=== PATIENT | female | born 1960 | race Hispanic/Latino ===

== ENCOUNTER 2025-03-18 03:53 | Emergency (ER) | payer BC ==
[~2025-03-18] VITALS: Ht 162.6 cm; Wt 90.7 kg
--- NOTE | 2025-03-18 04:04 | NUR ---
PT CARE ASSUMED AT THIS TIME
--- NOTE | 2025-03-18 04:20 | NUR ---
PT ATTEMPT TO USE BATHROOM TO COLLECT URINE AT THIS TIME. PT WAS UNSUCCESSFUL.
--- NOTE | 2025-03-18 04:23 | ERN ---
ED Note History of Present Illness Stated Complaint: FEVER, N/V/D Chief Complaint: Nausea,Vomiting,Diarrhea Time Seen by MD: 03:54 Dictation: This is a 64-year-old female who presented to the emergency room with complaints of fever nausea vomitings diarrhea going on for about 24 hours. She stated that her temp was 101.3 at home she had 2 episodes of emesis and 2 episodes of diarrhea with profound generalized body weakness and came into the ER for evaluation No hematemesis or melena. Temperature a 100.6 pulse 103 respirations 20 blood pressure 102/55 with a pulse oximetry of 98% on room air Chronic medical problems include diabetes mellitus, hypertension, hypercholesterolemia Allergies: Coded Allergies: No Known Allergies (Unverified Allergy, Unknown, 03/18/25) Past Medical History Past Medical History: Diabetes-Type II, High Cholesterol, Hypertension Surgical History: None Family History: Negative Social History: Negative History: Not Applicable RN Note Reviewed/Agreed w/PFSH: Yes Review of System Dictation Constitutional: Positive for fever,chills, and weight loss Eyes: Negative for injury, pain,redness, and discharge ENT: Negative for injury,pain or swelling Cardiovascular: Negative for chest pain, palpitations, and edema Respiratory: Negative for shortness of breath, cough, and wheezing, Abdomen/GI: Positive for abdominal pain mostly in the suprapubic area and left lower quadrant, nausea, vomiting, diarrhea, Back: Negative for injury and pain : Negative for injury, bleeding and discharge MS/Extremity: Negative for injury and deformity Skin: Negative for rash, and discoloration Neuro: Negative for headache, weakness, numbness, tingling, and seizure Psych: Negative for suicide ideation, homicidal ideation, and hallucinations Initial Vital Sign VS Vital Signs Date Time Temp Pulse Resp B/P (MAP) Pulse Ox O2 Delivery O2 Flow Rate FiO2 03/18/25 03:54 100.6 103 20 102/55 96 Room Air 03/18/25 04:12 0 21 Physical Exam Dictation General: awake, alert, NAD Head/Face: Normocephalic, atraumatic Eyes: PERRL, EOMI, vision at baseline ENT: oral cavity clear, TMs clear, no signs of infection Neck: Trachea midline, supple, no nuchal rigidity Cardiovascular: RRR, normal S1/S2, No MRGs, no JVD Respiratory: CTAB, no respiratory distress, No rales or wheezes Abdomen: Soft, mild tenderness in the suprapubic area, non-distended, normal bowel sounds, no guarding or rebound. Skin: Warm, dry, normal turgor, no rash MS/Extremity: Pulses equal, no cyanosis, neurovascular intact, FROM Neuro: COAx4, GCS 15, strength 5/5, CN 2-12 intact, normal cerebellar exam, normal gait, Psych: Normal behavior, mood, and affect normal Extremities-trace edema without any palpable cords, Homans sign is negative Results (Laboratory/Radiology) Laboratory/Radiology Laboratory Tests Test 03/18/25 04:45 03/18/25 04:54 White Blood Count 14.3 K/uL (4.8-10.8) H Red Blood Count 4.70 MIL/uL (4.00-5.50) Hemoglobin 13.0 g/dL (12.0-16.0) Hematocrit 39.1 % (36-48) Mean Corpuscular Volume 83.2 fL (79-99) Mean Corpuscular Hemoglobin 27.7 pg (27.0-33.0) Mean Corpuscular Hemoglobin Concent 33.2 g/dL (32.0-36.0) Red Cell Distribution Width 14.4 % (11.0-15.5) Platelet Count 216 K/uL (130-400) Mean Platelet Volume 11.3 fL (7.5-10.5) H Immature Granulocyte % (Auto) 0.5 % (0-1) Neutrophils (%) (Auto) 93.9 % (40.0-77.0) H Lymphocytes (%) (Auto) 4.1 % (21.0-51.0) L Monocytes (%) (Auto) 0.8 % (3.0-13.0) L Eosinophils (%) (Auto) 0.5 % (0.0-8.0) Basophils (%) (Auto) 0.2 % (0.0-5.0) Neutrophils # (Auto) 13.4 K/uL (1.8-7.7) H Lymphocytes # (Auto) 0.6 K/uL (1.0-4.8) L Monocytes # (Auto) 0.1 K/uL (0.1-1.0) Eosinophils # (Auto) 0.07 K/uL (0.00-0.70) Basophils # (Auto) 0.03 K/uL (0.00-0.20) Absolute Immature Granulocyte (auto 0.07 K/uL (0-1) Nucleated Red Blood Cells 0.0 % (0.0-0.19) White Cell Morphology Comment See comments Sodium Level 140 mmol/L (136-145) Potassium Level 4.1 mmol/L (3.5-5.1) Chloride Level 100 mmol/L (101-111) L Carbon Dioxide Level 28 mmol/L (21-32) Blood Urea Nitrogen 10 mg/dL (7-18) Creatinine 1.1 mg/dL (0.5-1.0) H Glomerular Filtration Rate Calc 56 mL/min (>90) Random Glucose 186 mg/dL (70-105) H Total Calcium 8.9 mg/dL (8.5-10.1) Lipase 18 U/L (16-77) Influenza Type A Antigen Negative For Type A Influenza Type B Antigen Negative For Type B SARS-CoV-2 Antigen (Rapid) PRESUMPTIVE NEGATIVE Group A Streptococcus Rapid negative (NEGATIVE) ED Course ED Course Orders Procedure Category Date Status Time Cbc With Differential LAB 03/18/25 Complete 04:18 Urinalysis Profile LAB 03/18/25 Logged 04:18 Morphine 2mg Syg PHA 03/18/25 Complete (Morphine 2mg Syg) 04:30 Ondansetron 4mg Inj PHA 03/18/25 Complete (Zofran 4mg Inj) 04:30 Lipase LAB 03/18/25 Complete 04:18 Basic Metabolic Panel LAB 03/18/25 Complete 04:18 Influenza Type A & B, LAB 03/18/25 Complete Rapid 04:23 Covid19 (Sars Antigen LAB 03/18/25 Complete Rapid) 04:23 Rapid (Group A Strep) LAB 03/18/25 Complete 04:23 Acetaminophen 500mg PHA 03/18/25 Complete Tab (Tylenol 500mg T 05:30 0.9%Nacl 1000ml (Ns PHA 03/18/25 Complete 1000ml) 06:00 Ct Abdomen/Pelvis W/O CT 03/18/25 Resulted Contrast 06:49 Blood Cult MARIAN 03/18/25 Logged 08:13 Lactic Acid LAB 03/18/25 Logged 08:13 Zosyn 3.375gm+Ns 50ml PHA 03/18/25 In Process (Zosyn 3.375gm+Ns 08:30 0.9%Nacl 1000ml (Ns PHA 03/18/25 In Process 1000ml) 08:30 Current Medications Medications (Trade) Dose Ordered Sig/Vania Route PRN Reason Start Time Stop Time Status Last Admin Dose Admin Acetaminophen (TYLenol 500MG TAB) 1,000 mg ONCE ONCE PO 03/18/25 05:30 03/18/25 05:31 DC 03/18/25 05:06 Morphine Sulfate (morPHINE 2MG SYG) 2 mg ONCE ONCE IVP 03/18/25 04:30 03/18/25 04:31 DC 03/18/25 04:58 Ondansetron HCl (zoFRAN 4MG INJ) 4 mg ONCE ONCE IVP 03/18/25 04:30 03/18/25 04:31 DC 03/18/25 04:59 Piperacillin Sod/ Tazobactam Sod (Zosyn 3.375gm+NS 50ml) 3.375 gm ONCE ONCE IV 03/18/25 08:30 03/18/25 08:31 Sodium Chloride 1,000 ml @ 0 mls/hr ONCE ONCE IV 03/18/25 06:00 03/18/25 06:01 DC 03/18/25 05:46 Sodium Chloride 1,000 ml @ 0 mls/hr ONCE ONCE IV 03/18/25 08:30 03/18/25 08:31 Vital Signs Date Time Temp Pulse Resp B/P (MAP) Pulse Ox O2 Delivery O2 Flow Rate FiO2 03/18/25 06:49 97.5 83 16 107/56 98 Room Air* 0 21 03/18/25 05:35 99.7 85 18 113/52 97 Room Air* 0 21 03/18/25 05:06 101.1 03/18/25 04:12 102.0 97 19 112/52 98 Room Air* 0 21 03/18/25 03:54 100.6 103 20 102/55 96 Room Air We will perform diagnostic labs, advanced imaging and administer medications according to the patient's complaint. Once the results are available, will review and personally interpreted the labs to rule out any acute life- threatening emergency the trach require immediate intervention and treatment. I will then re-evaluate the patient after treatment and diagnostic exams have return to determine whether the patient requires any further testing, can safely be discharged home or need further admission to hospital for additional treatment and evaluation. Medical Decision Making MDM I took over care at [address] scan read and disposition. CC: n/v/d, lower abd pain Historian: patient Comorbidities: DM, HTN, DLD Limitations by social determinates of health: none Ddx: Sepsis, GI pathology, gastroenteritis, diverticulitis, dehydration, electrolyte abnormality, other Vital signs: Initially febrile 100.6, heart rate 103. Other vital signs stable. Labs (independently ordered and interpreted by me): Leukocytosis 14.3 K, 94% neutrophils. No bands. Chemistry shows stable electrolytes, creatinine 1.1. Glucose stable. Lipase stable. Flu COVID negative. CT abdomen and pelvis shows sigmoid diverticulosis without perforation or abscess, inflammatory fat stranding consistent with diverticulitis. Treatment in ED: 2 mg IV morphine, IV Zofran, 1 g of Tylenol, 1 L normal saline. Patient appears to have diverticulitis, does have a fever, meets SIRS criteria. Blood cultures and lactic acid ordered. IV antibiotics started. We will admit. Patient received 2 L normal saline, did not give the full fluid bolus 30 cc/kg to prevent fluid overload. Blood cultures and lactic acid drawn before the IV antibiotics. On sepsis focused re-evaluation after the fluid bolus the patient has stable perfusion. Cap refill less than 2 seconds. Stable vital signs. Consultation: Hospitalist for admission. DX & DISP Disposition: Inpatient Departure Impression: Primary Impression: Sepsis Additional Impressions: Diverticulitis, Dehydration Critical Time: 30 minutes (Critical Care Procedure NoteAuthorized and Performed by: meTotal critical care time: Approximately 36 minutesDue to a high probabilit y of clinically significant, life threatening deterioration, the patient required my highest level of preparedness to intervene emergently and I personally spent this critical care time directly and personally managing the patient. This critical care time included obtaining a history; examining the patient; pulse oximetry; ordering and review of studies; arranging urgent treatment with development of a management plan; evaluation of patient's response to treatment; frequent reassessment; and, discussions with other providers.This critical care time was performed to assess and manage the high probability of imminent, life-threatening deterioration that could result in multi-organ failure. It was exclusive of separately billable procedures and treating other patients and teaching time.Please see MDM section and the rest of the note for further information on patient assessment and treatment.) Condition: Stable Referrals: SELF,REFERRAL (PCP) SEAN CRUZ MD March 18, 2025 04:23 HODA GRAYSON DO March 18, 2025 08:16
[2025-03-18 04:51] LABS: BASOPHILS # (AUTO) 0.03 K/uL (0.00-0.20); BASOPHILS % (AUTO) 0.2 % (0.0-5.0); EOSINOPHILS # (AUTO) 0.07 K/uL (0.00-0.70); EOSINOPHILS % (AUTO) 0.5 % (0.0-8.0); HEMATOCRIT 39.1 % (36-48); IMMATURE GRANULOCYTE ABSOLUTE 0.07 K/uL (0-1); LYMPHOCYTES # (AUTO) 0.6 K/uL (1.0-4.8); LYMPHOCYTES % (AUTO) 4.1 % (21.0-51.0); MEAN CORPUSCULAR HEMOGLOBIN 27.7 pg (27.0-33.0); MEAN CORPUSCULAR HGB CONC 33.2 g/dL (32.0-36.0); MEAN CORPUSCULAR VOLUME 83.2 fL (79-99); MONOCYTES # (AUTO) 0.1 K/uL (0.1-1.0); MONOCYTES % (AUTO) 0.8 % (3.0-13.0); NEUTROPHILS # (AUTO) 13.4 K/uL (1.8-7.7); NEUTROPHILS % (AUTO) 93.9 % (40.0-77.0); PLATELET COUNT (AUTO) 216 K/uL (130-400); RED CELL DISTRIBUTION WIDTH 14.4 % (11.0-15.5); WHITE BLOOD COUNT (AUTO) 14.3 K/uL (4.8-10.8)
[2025-03-18] MEDS: morPHINE 2 MG SYG IVP ONE (04:58)
[2025-03-18] MEDS: ondanSETRON 4MG INJ IVP ONE (04:59)
[2025-03-18 05:00] LABS: CREATININE 1.1 mg/dL (0.5-1.0); POTASSIUM 4.1 mmol/L (3.5-5.1)
[2025-03-18] MEDS: acetaMINOPHEN 500 MG TABLET PO ONE (05:06)
[2025-03-18 05:18] LABS: RAPID GROUP A STREP negative (NEGATIVE)
[2025-03-18 05:28] LABS: COVID19 (SARS ANTIGEN RAPID) PRESUMPTIVE NEGATIVE (NEGATIVE); INFLUENZA TYPE A Negative For Type A (NEGATIVE); INFLUENZA TYPE B Negative For Type B (NEGATIVE)
--- NOTE | 2025-03-18 05:37 | NUR ---
BLADDER SCAN PREFORMED AT BEDSIDE. 1ML FOUND ON SCAN. ED MD MADE AWARE.
[2025-03-18] MEDS: 0.9%NACL 1000ML 1,000 ML IV ONE ×2 (05:46→08:36)
[2025-03-18 06:22] VITALS: TEMP 99.6
--- NOTE | 2025-03-18 07:06 | NUR ---
REPORT GIVEN TO JASON DAVIS AT THIS TIME
--- NOTE | 2025-03-18 07:57 | HMCIMG ---
CT ABDOMEN WITHOUT CONTRAST. CT PELVIS WITHOUT CONTRAST. INDICATION: Right flank pain TECHNIQUE: Routine transaxial imaging using 5 mm slice thickness through the abdomen and pelvis without the administration of IV contrast. Thin slice reconstructions are also provided. Coronal and sagittal reformatted images acquired for interpretation. CT was performed with one or more of the following dose reduction techniques: Automated exposure control, adjustment of the mA and/or kV according to patient size, or use of iterative reconstruction technique. COMPARISON: None FINDINGS: ON NONCONTRAST IMAGING: ABDOMEN: Heart size is normal. Coronary arterial wall calcific plaque noted. Visible lung bases are clear. No abnormal renal calcifications, hydronephrosis, perinephric inflammation, or proximal hydroureter detected. The liver is normal in size and smooth in contour without biliary duct dilation. Diffuse low attenuation of the liver parenchyma suggests fatty change. The spleen is normal in size and attenuation. The gallbladder appears normal. The pancreas appears normal without pancreatic duct dilation. The adrenal glands appear normal. No significant abdominal, retrocrural or retroperitoneal adenopathy noted. No evidence for intra-abdominal free air or organized fluid collection. Trace calcific plaque is noted along the abdominal aortic and iliac vessel aguilera without aneurysmal dilation. PELVIS: No abnormal calcifications within the urinary bladder or distal ureters. No evidence for free air or organized pelvic fluid collection. No significant pelvic adenopathy detected. Several diverticula along the distal colon and focal mild pericolonic inflammatory fat stranding along the far proximal sigmoid colon without surrounding free air or organized fluid collection. Terminal ileum appears unremarkable. The appendix appears normal. Visible osseous structures are intact. IMPRESSION: Focal proximal sigmoid diverticulosis without perforation or abscess. Hepatic steatosis.
[2025-03-18] MEDS: ZOSYN 3.375GM +NS 50ML IV ONE (08:37)
[2025-03-18] MEDS: 0.9%NACL 1000ML 1,641 ML IV ONE (08:46)
[2025-03-18 08:47] LABS: APPEARANCE,URINE CLOUDY (CLEAR); BILIRUBIN,URINE NEGATIVE (NEGATIVE); COLOR,URINE YELLOW (YELLOW); GLUCOSE, URINE (UA) NEGATIVE (NEGATIVE); KETONES,URINE 5 mg/dL (NEGATIVE); LEUKOCYTE ESTERASE ,URINE NEGATIVE Leu/uL (NEGATIVE); NITRATE,URINE NEGATIVE (NEGATIVE); OCCULT BLOOD,URINE NEGATIVE (NEGATIVE); PROTEIN,URINE 30 mg/dL (NEGATIVE)
[2025-03-18] MEDS ORDERED: ATOR20TA65 PO (08:51)
[2025-03-18] MEDS ORDERED: BUME1TAB6 PO (08:51)
[2025-03-18] MEDS ORDERED: GLIM4TAB36 PO (08:51)
[2025-03-18] MEDS ORDERED: METF-444 PO (08:51)
[2025-03-18] MEDS ORDERED: ASPI-1443 PO (08:51)
[2025-03-18] MEDS ORDERED: LOSA100T59 PO (08:51)
[2025-03-18 08:55] LABS: ADD UA MICROSCOPIC YES
[2025-03-18 08:57] LABS: BACTERIA,URINE RARE /HPF (None Seen); MUCUS,URINE FEW LPF (None Seen); RBC,URINE 0-1 /HPF (0-1); SQUAMOUS EPITHELIAL CELL,UR RARE /HPF (0-2)
[2025-03-18] MEDS ORDERED: hydrALAZine 20MG/ML VIAL IV PRN (09:00)
[2025-03-18] MEDS ORDERED: acetaMINOPHEN 325 MG TAB PO PRN (09:00)
[2025-03-18] MEDS ORDERED: ondanSETRON 4MG INJ IVP PRN (09:00)
[2025-03-18 09:25] LABS: PROTHROMBIN TIME 10.6 SEC (9.6-11.6)
[2025-03-18 09:26] LABS: PARTIAL THROMBOPLASTIN TIME 24.9 SEC (26.3-35.5)
--- NOTE | 2025-03-18 09:45 | NUR ---
TRANSFER REQUEST FOR INSURANCE OUT OF NET WORK PER REGISTRATION PT REQUESTED TO BE TRANSFER OUT. PER SON HE CALL THE INSURANCE BUT ITS CLOSED. JEANINE DAVIS
--- NOTE | 2025-03-18 09:56 | CONS ---
[facility] CONSULTATION NOTE Date of Service: March 18, 2025 Reason for Consultation: Medical management Requesting Physician: Dr. Sanchez HISTORY OF PRESENT ILLNESS: Date of service: 03/18/2025, patient was seen in ER room nine 64-year-old female with underlying history of type 2 diabetes mellitus, hypertension, hyperlipidemia, history of stroke several months ago presented to the ER for further evaluation of [id number] lower abdominal pain. Symptoms started yesterday and patient reports having nausea, vomiting, subjective fevers and chills. The pain is 10/10 in severity. Patient denies any previous history of GI symptoms. Denies previous history of colonoscopy. Currently denies any chest pain or shortness of breadth. Patient reports that she was admitted with stroke several months ago in [place] and was hospitalized for about three days. She is currently maintained on antihypertensive therapy as well as aspirin. She has recently noticed that she was having lower extremity swelling, and she was been taking outpatient bumetanide. Denies any recent travel. On presentation to the hospital, patient was noted to have fever of 102 F, heart rate of 103, blood pressure of 102/55. [place] [address], hemoglobin 13, platelet count of 617945. BMP remarkable for sodium of 140, potassium 4.1, creatinine 1.1, lactic acid of 2.9. Patient underwent further evaluation with CT abdomen pelvis without contrast which showed findings of focal sigmoid diverticulitis without perforation or abscess. I was initially informed to admit this patient by ER, but later came to know due to issues with her insurance, patient will be transferred to hospital where her insurance is in-network. I have already placed orders for sepsis bolus of fluid and IV antibiotics while she awaits ER transfer out. REVIEW OF SYSTEMS CONSTITUTIONAL: Denies fevers, chills, or night sweats. No unintentional weight loss reported. NEUROLOGICAL: Denies headache, amaurosis fugax, motor weakness, sensory deficit, vertigo/spinning sensation, gait abnormalities, or tremors. ENT: No hearing loss, otalgia, otorrhea, rhinitis, rhinorrhea, hoarseness, or sore throat. CARDIOVASCULAR: Denies any exertional angina, dyspnea on exertion, orthopnea, paroxysmal nocturnal dyspnea, palpitations, life-threatening arrhythmias, claudication. PULMONARY: Denies any shortness of breath, cough, phlegm/sputum, hemoptysis, pleuritic chest pain. SLEEP: Denies morning headaches, daytime somnolence or napping. Denies difficulty falling asleep, staying asleep, waking from sleep. Denies knowledge of snoring. GASTROINTESTINAL: nausea, vomiting, significant abdominal pain that started since yesterday GENITOURINARY: Denies frequency, urgency, nocturia, hematuria or incontinence (Storage/Irritative symptoms.) Low urinary stream, straining to void, urinary intermittency or hesitancy, splitting of the voiding stream, terminal dribbling. ENDOCRINOLOGIC: Denies polyuria, polydipsia, polyphagia or heat/cold intolerances. HEMATOLOGIC: Denies thrombophilia/previous clots, or coagulopathy/bleeding disorders. ONCOLOGIC: Denies personal history of malignancy. DERMATOLOGIC: Denies rashes or pruritus. PSYCHIATRIC: Denies any suicidal or homicidal ideation. Denies hallucinations. PAST MEDICAL HISTORY: Hypertension, hyperlipidemia, type 2 diabetes mellitus, obesity, suspected obstructive sleep apnea, recent history of stroke several months ago PAST SURGICAL HISTORY: Prior history of hysterectomy PAST SOCIAL HISTORY: Denies active smoking or alcohol consumption FAMILY HISTORY: Denies pertinent family history Home medications: Losartan 100 mg at bedtime, Bumex 1 mg daily, aspirin 81 mg daily, patient also reports being on antidiabetic medication Coded Allergies: No Known Allergies (Unverified Allergy, Unknown, 03/18/25) PHYSICAL EXAM GENERAL APPEARANCE: The patient is awake, alert, and oriented, in no acute cardiopulmonary distress. NEUROLOGICAL: Cranial nerves II-XII grossly intact. Motor is 5/5 in bilateral upper and lower extremities proximal to distal. No sensory deficits. HEENT: Face is symmetric. Pupils are equal and reactive. Extraocular movements are intact. NECK: Supple. No JVD. No thyromegaly. No submental, submandibular, pre- /postauricular, occipital or supraclavicular lymphadenopathy. CHEST: Normal chest expansion. No Telemetry. LUNGS: Absence of any rales, rhonchi or any wheezing. CARDIOVASCULAR: Regular. S1 and S2 normal. No appreciable rubs, murmurs or gallops. ABDOMEN: Significant tenderness to palpation of the lower abdominal quadrant with no rebound or guarding : Deferred. No Mathews. EXTREMITIES: Non-edematous and not cyanotic. No clubbing. Good capillary refill. SKIN: No skin breakdown. Vital Sign (Last 24 Hours) 03/18/25 08:56 Temp 99.1 Pulse 74 Resp 17 B/P (MAP) 107/50 Pulse Ox 98 O2 Delivery Room Air* O2 Flow Rate 0 FiO2 21 LABS: Laboratory: Test 03/18/25 08:37 03/18/25 08:15 03/18/25 04:54 03/18/25 04:45 Range/Units Lactic Acid Level 2.9 H 0.8-2.5 mmol/L Lactate Dehydrogenase 167 81-234 U/L C-Reactive Protein, Quantitative 80.00 H 0.5-3.0 mg/L Procalcitonin 7.84 H 0.05-0.5 ng/mL Urine Color YELLOW YELLOW Urine Appearance CLOUDY H CLEAR Urine pH 6.0 5.0-8.0 Urine Specific [place] 1.026 1.001-1.031 Urine Protein 30 H NEGATIVE mg/dL Urine Glucose (UA) NEGATIVE NEGATIVE mg/dL Urine Ketones 5 H NEGATIVE mg/dL Urine Occult Blood NEGATIVE NEGATIVE Urine Nitrate NEGATIVE NEGATIVE Urine Bilirubin NEGATIVE NEGATIVE mg/dL Urine Urobilinogen 2.0 H 0.2-1.0 mg/dL Urine Leukocyte Esterase NEGATIVE NEGATIVE Shahid/uL Urine RBC 0-1 0-1 /HPF Urine WBC 2-5 H 0-1 /HPF Urine Squamous Epithelial Cells RARE 0-2 /HPF Urine Bacteria RARE None Seen /HPF Urine Hyaline Casts 2-5 H 0-1 /LPF /LPF Influenza Type A Antigen Negative For Type A NEGATIVE Influenza Type B Antigen Negative For Type B NEGATIVE SARS-CoV-2 Antigen (Rapid) PRESUMPTIVE NEGATIVE NEGATIVE Group A Streptococcus Rapid negative NEGATIVE White Blood Count 14.3 H 4.8-10.8 K/uL Red Blood Count 4.70 4.00-5.50 MIL/uL Hemoglobin 13.0 12.0-16.0 g/dL Hematocrit 39.1 36-48 % Mean Corpuscular Volume 83.2 79-99 fL Mean Corpuscular Hemoglobin 27.7 27.0-33.0 pg Mean Corpuscular Hemoglobin Concent 33.2 32.0-36.0 g/dL Red Cell Distribution Width 14.4 11.0-15.5 % Platelet Count 216 130-400 K/uL Mean Platelet Volume 11.3 H 7.5-10.5 fL Immature Granulocyte % (Auto) 0.5 0-1 % Neutrophils (%) (Auto) 93.9 H 40.0-77.0 % Lymphocytes (%) (Auto) 4.1 L 21.0-51.0 % Monocytes (%) (Auto) 0.8 L 3.0-13.0 % Eosinophils (%) (Auto) 0.5 0.0-8.0 % Basophils (%) (Auto) 0.2 0.0-5.0 % Neutrophils # (Auto) 13.4 H 1.8-7.7 K/uL Lymphocytes # (Auto) 0.6 L 1.0-4.8 K/uL Monocytes # (Auto) 0.1 0.1-1.0 K/uL Eosinophils # (Auto) 0.07 0.00-0.70 K/uL Basophils # (Auto) 0.03 0.00-0.20 K/uL Absolute Immature Granulocyte (auto 0.07 0-1 K/uL Nucleated Red Blood Cells 0.0 0.0-0.19 % White Cell Morphology Comment See comments Prothrombin Time 10.6 9.6-11.6 SEC Prothromb Time International Ratio 1.00 0.85-1.15 Activated Partial Thromboplast Time 24.9 L 26.3-35.5 SEC Sodium Level 140 136-145 mmol/L Potassium Level 4.1 3.5-5.1 mmol/L Chloride Level 100 L 101-111 mmol/L Carbon Dioxide Level 28 21-32 mmol/L Blood Urea Nitrogen 10 7-18 mg/dL Creatinine 1.1 H 0.5-1.0 mg/dL Glomerular Filtration Rate Calc 56 >90 mL/min Random Glucose 186 H 70-105 mg/dL Total Calcium 8.9 8.5-10.1 mg/dL Lipase 18 16-77 U/L DIAGNOSTICS / RADIOLOGY: SERVICE 0649 REASON: diverticulitis, Colitis ORDERING PHYSICIAN: SEAN CRUZ MD PROCEDURE: ABD PEL WO - CT ABDOMEN/PELVIS W/O CONTRAST CT ABDOMEN WITHOUT CONTRAST. CT PELVIS WITHOUT CONTRAST. INDICATION: Right flank pain TECHNIQUE: Routine transaxial imaging using 5 mm slice thickness through the abdomen and pelvis without the administration of IV contrast. Thin slice reconstructions are also provided. Coronal and sagittal reformatted images acquired for interpretation. CT was performed with one or more of the following dose reduction techniques: Automated exposure control, adjustment of the mA and/or kV according to patient size, or use of iterative reconstruction technique. COMPARISON: None FINDINGS: ON NONCONTRAST IMAGING: ABDOMEN: Heart size is normal. Coronary arterial wall calcific plaque noted. Visible lung bases are clear. No abnormal renal calcifications, hydronephrosis, perinephric inflammation, or proximal hydroureter detected. The liver is normal in size and smooth in contour without biliary duct dilation. Diffuse low attenuation of the liver parenchyma suggests fatty change. The spleen is normal in size and attenuation. The gallbladder appears normal. The pancreas appears normal without pancreatic duct dilation. The adrenal glands appear normal. No significant abdominal, retrocrural or retroperitoneal adenopathy noted. No evidence for intra-abdominal free air or organized fluid collection. Trace calcific plaque is noted along the abdominal aortic and iliac vessel aguilera without aneurysmal dilation. PELVIS: No abnormal calcifications within the urinary bladder or distal ureters. No evidence for free air or organized pelvic fluid collection. No significant pelvic adenopathy detected. Several diverticula along the distal colon and focal mild pericolonic inflammatory fat stranding along the far proximal sigmoid colon without surrounding free air or organized fluid collection. Terminal ileum appears unremarkable. The appendix appears normal. Visible osseous structures are intact. IMPRESSION: Focal proximal sigmoid diverticulosis without perforation or abscess. Hepatic steatosis. DICTATED BY: JENNIFER CHAPA MD DATE: 03/18/25 0754 ELECTRONICALLY SIGNED BY: JENNIFER CHAPA MD DATE: 03/18/25 0759 ASSESSMENT: Sepsis secondary to underlying sigmoid diverticulitis, POA Acute sigmoid diverticulitis, POA Lactic acidosis, POA, 2/2 underlying sepsis Dehydration, POA History of hypertension, POA Recent history of CVA several months ago, POA Hyperlipidemia, POA Obesity, POA PLAN: Initially admission orders were placed but I have canceled it as patient's [place] [facility] [place] [facility] will be [place] out from the ER Sepsis bolus of fluids have been ordered, patient will be kept NPO, patient will be placed on IV Zosyn Lactic acid is noted to be elevated from underlying sepsis, we will trend q.4 hours until less than two Maintenance IV fluids with LR at 75 mL/hour Patient will be kept on GI prophylaxis and pain control Patient will be transferred out from the ER to hospital which is in network with her insurance Date of service: 03/18/2025 Plan of care was discussed with patient and son at bedside. TYLER Hunt MD, MD March 18, 2025 09:55
[2025-03-18] MEDS: LACTATED RINGERS 1000ML 1,000 ML IV SCH (10:20)
[2025-03-18] MEDS: PANTOPrazole 40 MG/VIAL IVP SCH (10:20)
--- NOTE | 2025-03-18 10:40 | NUR ---
TRANSFER CALL PLAC[place] [facility] [phone] SPOKE WITH YULIA INTAKE NURSE INFORMATION PROVIDED AND WILL CALL BACK. JEANINE DAVIS
[2025-03-18] MEDS: morPHINE 2 MG SYG IVP PRN (10:53)
[2025-03-18] MEDS: INSULIN humuLIN R 100 UNIT/ML 3ML SQ SCH (11:30)
--- NOTE | 2025-03-18 11:38 | NUR ---
TRANSFER CALL BACK FROM TRANSFER CENTER WITH ACCEPTANCE UNDER DR KALIA HUSTON TO ROOM 1627 AND PRIMARY TO CALL REPORT TO [phone] AND EMS WHEN READY. JEANINE DAVIS
[2025-03-18 13:05] VITALS: BP 99/53; PULSE 64; RESP 18; TEMP 97.8; O2SAT 99
--- NOTE | 2025-03-18 13:19 | NUR ---
REPORT GIVEN TO [facility] NURSE AT 1315, EMS CALLED PENDING MAGAZINE KEEPER FOR TRANSFER.
--- NOTE | 2025-03-18 14:59 | NUR ---
[facility] TRANSFER: PER [facility] DISPATCHER, THEY ARE TRYING TO SEE ABOUT GETTING SOMEONE OUT HER ETO TRANSPORT PT TO [facility]
--- NOTE | 2025-03-18 15:54 | NUR ---
1555 [facility] EMS ARRIVED FOR BENZENE WASHER OF PT, TRANSFERRED VIA STRETCHER PT STABLE VITALS WNL NO C/O PAIN NOW, SON TOOK PT PERSONAL BELONGINGS.
[2025-03-18] MEDS ORDERED: ZOSYN 3.375GM +NS 50ML IVPB SCH (16:30)
== END 2025-03-18 15:54 | disposition short-term general hospital (02) ==
LOC: EDH 03:53
DX: A41.9 Sepsis, unspecified organism (principal); K57.32 Diverticulitis of large intestine without perforation or abscess without bleeding; E86.0 Dehydration; E11.9 Type 2 diabetes mellitus without complications; E66.9 Obesity, unspecified; E78.00 Pure hypercholesterolemia, unspecified; I10 Essential (primary) hypertension; Z79.82 Long term (current) use of aspirin; Z79.899 Other long term (current) drug therapy; Z86.73 Personal history of transient ischemic attack (TIA), and cerebral infarction without residual deficits; Z90.710 Acquired absence of both cervix and uterus; Z20.822 Contact with and (suspected) exposure to COVID-19
CPT/HCPCS: 99291; 74176; 96365; 96366; 96375; 87426; 83615; 80048; 83690; 85025; 85610; 85730; 85651; 87040 ×2; 87880; 87804 ×2; 82948; 83605; 86140; 81001; 36415; 96376; 84145; J2270 ×2; J2405; J2543; J2470

== ENCOUNTER 2025-09-07 08:53 | Emergency (ER) | payer BC ==
[~2025-09-07] VITALS: Ht 160 cm; Wt 96.6 kg
[~2025-09-07 08:53] MED LIST: ASPI-1443 PO; ATOR20TA65 PO; BUME1TAB6 PO; GLIM4TAB36 PO; LOSA100T59 PO; METF-444 PO
[2025-09-07 09:19] LABS: IMMATURE GRANULOCYTE ABSOLUTE 0.04 K/uL (0-1); NUCLEATED RED BLOOD CELLS 0.0 % (0.0-0.19); PLATELET COUNT (AUTO) 234 K/uL (130-400); RED BLOOD CELL COUNT(AUTO) 4.78 MIL/uL (4.00-5.50); RED CELL DISTRIBUTION WIDTH 14.8 % (11.0-15.5); WHITE BLOOD COUNT (AUTO) 10.0 K/uL (4.8-10.8)
--- NOTE | 2025-09-07 09:21 | EKG ---
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
[2025-09-07 09:25] LABS: CREATININE 0.9 mg/dL (0.5-1.0); GLOMERULAR FILTR. RATE CALC 72.0 mL/min (>90); GLUCOSE,RANDOM 256.0 mg/dL (70-105); SODIUM SERUM 137.0 mmol/L (136-145); UREA NITROGEN, BLOOD 10.0 mg/dL (7-18)
[2025-09-07 09:27] LABS: APPEARANCE,URINE CLEAR (CLEAR); GLUCOSE, URINE (UA) NEGATIVE (NEGATIVE); LEUKOCYTE ESTERASE ,URINE 25 Leu/uL (NEGATIVE); NITRATE,URINE NEGATIVE (NEGATIVE); OCCULT BLOOD,URINE NEGATIVE (NEGATIVE)
[2025-09-07 09:29] LABS: ASPARTATE AMINOTRANSFERASE 17.0 U/L (10-37); CREATINE KINASE, TOTAL 43.0 U/L (21-232); TOTAL PROTEIN, SERUM 6.7 g/dL (6.0-8.3)
[2025-09-07 09:35] LABS: ADD UA MICROSCOPIC YES
[2025-09-07 09:36] LABS: SQUAMOUS EPITHELIAL CELL,UR Few /HPF (0-2)
[2025-09-07] MEDS ORDERED: IOHEXOL-350 75 ML VIAL IV ONE (11:06)
--- NOTE | 2025-09-07 11:33 | ERN ---
General Chief Complaint: Abdominal Pain Stated Complaint: RIGHT LOWER QUADRANT PAIN Time Seen by MD: 08:59 Source: patient History of Present Illness Initial Comments Patient is a 64-year-old female coming in complaining of lower abdominal discomfort. Per patient she was diagnosed with a diverticulitis and believes he might have diverticulitis again. She states that her symptoms began two days ago and has been getting worse. Allergies: Coded Allergies: No Known Allergies (Unverified Allergy, Unknown, 03/18/25) Home Meds Reported Medications Aspirin (Aspirin EC) 81 Mg Tablet.dr, 81 MG PO DAILY, TAB 03/18/25 Metformin HCl (Metformin HCl) 500 Mg Tablet, 500 MG PO BID, TAB 03/18/25 Bumetanide (Bumetanide) 1 Mg Tablet, 1 MG PO DAILY, TAB 03/18/25 Losartan Potassium (Losartan Potassium) 100 Mg Tablet, 100 MG PO HS, TAB 03/18/25 Atorvastatin Calcium (Atorvastatin Calcium) 20 Mg Tablet, 20 MG PO HS, TAB 03/18/25 Glimepiride (Glimepiride) 4 Mg Tablet, 4 MG PO BID, TAB 03/18/25 Past Medical History Past Medical History: Diabetes-Type II, High Cholesterol, Hypertension Past Surgical History: None Family History Family History: Negative Social History Social History: Negative Female( History) History: Not Applicable ROS Dictation CONSTITUTIONAL: No chills, no fever, no weakness, no diaphoresis, no malaise. HEAD/FACE: No signs of trauma. EENT: No eye pain, no blurred vision, no tearing, no double vision, no ear pain, no ear discharge, no nose pain, no nasal congestion, no throat pain, no throat swelling, no mouth pain. RESPIRATORY: No cough, no orthopnea, no SOB, no stridor, no wheezing. CARDIOVASCULAR: No chest pain, no edema, no palpitations, no syncope. GASTROINTESTINAL/ABDOMINAL: abdominal pain, no constipation, no diarrhea, no nausea, no vomiting. GENITOURINARY: No abnormal discharge, no dysuria, no frequent urination, no hematuria. No complaints of pain in the genitals. MUSCULOSKELETAL: No back pain, no gout, no joint pain, no joint swelling, no muscle pain, no muscle stiffness, no neck pain. INTEGUMENTARY: No change in color, no change in hair/nails, no dryness, no lesion, no lumps, no rash. NEUROLOGICAL/PSYCH: No anxiety, not depressed, no emotional problem, no headache, no numbness, no pre-existing deficit, no history of seizures, no tremors, no weakness. HEMATOLOGIC/LYMPHATIC: Not anemic, no history of blood clots, no apparent bleeding, no bruising, glands not swollen. All Systems Negative, Except as Noted. Physical Exam Physical Exam Dictation VITAL SIGNS: Reviewed. GENERAL APPEARANCE: Alert, oriented x3, no acute distress, obese. HEAD AND FACE: Non-traumatic. EYES: PERRL, pink conjunctivas, eyelid no trauma, anterior chamber clear. EARS: Pinnas intact and no signs of trauma or erythema. Ear canals clear and no discharge. TMs no erythema. NOSE: No discharge, no bleeding. OROPHARYNX: Mouth normal, teeth no caries, tongue pink. Pharynx clear, no ivy thema. Tonsils no exudates, no abscesses noted. Mucous membrane moist. NECK: Supple, non-tender, no thyromegaly, no masses, no JVD, no bruits. BREAST: Deferred. CHEST: No tenderness, no crepitus, no paradoxical movement, no retractions. LUNGS: Clear, well-ventilated, symmetric, no rales, no wheezing, no rhonchi, no stridor, good breath sounds bilaterally. HEART: Regular rate, regular rhythm, no murmur, no gallops. VASCULAR: No peripheral edema. ABDOMEN: Soft, positive bowel sounds, nondistended, no guarding, lower abdominal tender, no rebound, no masses no hepatomegaly, no splenomegaly, no Machado's sign, no hernias. RECTAL: Deferred. GENITAL: Deferred. NEUROLOGICAL: Normal speech, gross motor function intact, gross sensory function intact. MUSCULOSKELETAL: Neck nontender, full range of motion, back nontender, full range of motion. EXTREMITIES: Nontender, full range of motion. SKIN: Color pink, dry, no turgor, no rash, no lacerations, no abrasions, no contusions. LYMPHATICS: Deferred. Results Laboratory and Microbiology Lab and Micro Result Laboratory Tests Test 09/07/25 09:10 09/07/25 09:18 White Blood Count 10.0 K/uL (4.8-10.8) Red Blood Count 4.78 MIL/uL (4.00-5.50) Hemoglobin 13.4 g/dL (12.0-16.0) Hematocrit 40.4 % (36-48) Mean Corpuscular Volume 84.5 fL (79-99) Mean Corpuscular Hemoglobin 28.0 pg (27.0-33.0) Mean Corpuscular Hemoglobin Concent 33.2 g/dL (32.0-36.0) Red Cell Distribution Width 14.8 % (11.0-15.5) Platelet Count 234 K/uL (130-400) Mean Platelet Volume 11.3 fL (7.5-10.5) H Immature Granulocyte % (Auto) 0.4 % (0-1) Neutrophils (%) (Auto) 69.2 % (40.0-77.0) Lymphocytes (%) (Auto) 22.4 % (21.0-51.0) Monocytes (%) (Auto) 4.1 % (3.0-13.0) Eosinophils (%) (Auto) 3.6 % (0.0-8.0) Basophils (%) (Auto) 0.3 % (0.0-5.0) Neutrophils # (Auto) 6.9 K/uL (1.8-7.7) Lymphocytes # (Auto) 2.2 K/uL (1.0-4.8) Monocytes # (Auto) 0.4 K/uL (0.1-1.0) Eosinophils # (Auto) 0.36 K/uL (0.00-0.70) Basophils # (Auto) 0.03 K/uL (0.00-0.20) Absolute Immature Granulocyte (auto 0.04 K/uL (0-1) Nucleated Red Blood Cells 0.0 % (0.0-0.19) Sodium Level 137 mmol/L (136-145) Potassium Level 4.4 mmol/L (3.5-5.1) Chloride Level 99 mmol/L (101-111) L Carbon Dioxide Level 33 mmol/L (21-32) H Blood Urea Nitrogen 10 mg/dL (7-18) Creatinine 0.9 mg/dL (0.5-1.0) Glomerular Filtration Rate Calc 72 mL/min (>90) Random Glucose 256 mg/dL (70-105) H Total Calcium 9.1 mg/dL (8.5-10.1) Total Bilirubin 0.8 mg/dL (0.2-1.0) Aspartate Amino Transf (AST/SGOT) 17 U/L (10-37) Alanine Aminotransferase (ALT/SGPT) 33 U/L (12-78) Alkaline Phosphatase 128 U/L (50-136) Total Creatine Kinase 43 U/L (21-232) Troponin I High Sensitivity 7 ng/L (4-50) Total Protein 6.7 g/dL (6.0-8.3) Albumin 3.0 g/dL (3.5-5.0) L Urine Color YELLOW (YELLOW) Urine Appearance CLEAR (CLEAR) Urine pH 6.5 (5.0-8.0) Urine Specific [place] 1.017 (1.001-1.031) Urine Protein NEGATIVE mg/dL (NEGATIVE) Urine Glucose (UA) NEGATIVE mg/dL (NEGATIVE) Urine Ketones NEGATIVE mg/dL (NEGATIVE) Urine Occult Blood NEGATIVE (NEGATIVE) Urine Nitrate NEGATIVE (NEGATIVE) Urine Bilirubin NEGATIVE mg/dL (NEGATIVE) Urine Urobilinogen 0.2 mg/dL (0.2-1.0) Urine Leukocyte Esterase 25 Shahid/uL (NEGATIVE) H Urine RBC 0-1 /HPF (0-1) Urine WBC 2-5 /HPF (0-1) H Urine Squamous Epithelial Cells Few /HPF (0-2) Urine Bacteria Rare /HPF (None Seen) Labs Reviewed?: Yes EKG/XRAY/US/CT/MRI EKG Comment 09/07/2025 time 9:15 a.m. Ventricular rate 75 Sinus rhythm [place] [address] wave elevation or depression CT Scan Comment [place] [id number] [place] [address] IMAGING REPORT Signed PATIENT: DENISE NIXON MR#: [id number] : 1960 SEX: F AGE: 64 LOCATION: [facility] ORDER 04 STATUS: REG ER REPORT#: [id number] SERVICE 100 REASON: abd pain ORDERING PHYSICIAN: IRIS SOLIS MD PROCEDURE: ABD PEL W - CT ABDOMEN/PELVIS W/CONTRAST EXAM: CT Abdomen and Pelvis with IV contrast CLINICAL HISTORY: abd pain NEED REPORT ELISABETH PER ER DOC TECHNIQUE: Axial computed tomography images of the abdomen and pelvis with intravenous contrast. CT scan performed according to ALARA. Automated exposure control used during exam. CONTRAST: with intravenous contrast. COMPARISON: None provided. FINDINGS: Lung bases are clear. There is no focal abnormality appreciated within the liver, gallbladder, either adrenal gland, either kidney, spleen, or pancreas. Mesenteric panniculitis within the mid abdomen. No fluid collection appreciated. Bowel loops are normal in caliber without evidence of obstruction, ileus, or obvious bowel wall thickening. There is colonic diverticulosis without evidence for diverticulitis. No CT evidence of acute appendicitis. Mild bladder wall thickening may reflect cystitis, clinical correlation is advised. The uterus is either atrophic or surgically absent, clinical correlation is advised. There is no ascites or lymphadenopathy. Opacified abdominal and pelvic vessels are patent. Atherosclerotic vascular calcifications are noted. There is no acute or suspicious osseous abnormality. IMPRESSION: 1. No acute intraabdominal or pelvic pathology. 2. Incidental mesenteric panniculitis within the mid abdomen. 3. Mild bladder wall thickening, may reflect cystitis. /[place] DICTATED BY: GY EARL Jr., MD DATE: 09/07/251341 ELECTRONICALLY SIGNED BY: GY EARL Jr., MD DATE: 09/07/251341 [facility] MDM: Differential diagnosis: Diverticulitis, panniculitis, Rationale: Tests considered and ordered secondary to shared decision making include: Previous outside records reviewed: Old ER visits. Risk of complication and/or morbidity or mortality of patient management: None Medications-Per medication reconciliation Need for hospitalization: Patient does not meet criteria for hospitalization. Need for emergency major/minor surgery: No There are no social concerns with this patient. Patient is a 64 year old female coming in complaining of lower abdominal discomfort. Patient believes he might be having a flare-up of her diverticulitis. She believes that the pain is associated with a it. On physical exam that has tenderness of the lower left abdominal region suggestive of diverticulitis. CT of the abdomen disclose a cystitis with a possible panniculitis. Patient will be discharged in stable condition with a diagnosis of cystitis antibiotics will be provided. I did advised her appropriate follow up with PCP for long-term management. ED Course Orders Procedure Category Date Status Time Cbc With Differential LAB 09/07/25 Complete 09: Comprehensive LAB 09/07/25 Complete Metabolic Panel 09: Troponin I High LAB 09/07/25 Complete Sensitivity 09: Urinalysis Profile LAB 09/07/25 Complete 09: 12 Lead Ekg Tracing- EKG 09/07/25 Resulted Technical 09:01 Creatine Kinase, Total LAB 09/07/25 Complete 09: Ct Abdomen/Pelvis CT 09/07/25 Resulted W/Contrast 10:04 Iohexol (Omnipaque) PHA 09/07/25 Complete 11:06 Current Medications Medications (Trade) Dose Ordered Sig/Vania Route PRN Reason Start Time Stop Time Status Last Admin Dose Admin Iohexol (Omnipaque) 75 ml STK-MED ONCE IV 09/07/25 11:06 09/07/25 11:06 DC Vital Signs Date Time Temp Pulse Resp B/P (MAP) Pulse Ox O2 Delivery O2 Flow Rate FiO2 09/07/25 11:00 98.1 97 15 126/69 97 Room Air* 0 21 09/07/25 09:00 98.1 91 20 139/79 98 Room Air* 0 21 09/07/25 08:58 98.1 91 20 139/79 98 Room Air DX & DISP Disposition: Discharge Departure Impression: Primary Impression: Cyclitis Additional Impression: Panniculitis Condition: Stable Scripts Ciprofloxacin (Cipro) 500 Mg/5 Ml Mary.mc.rec 500 MG PO BID for 7 Days, #14 TAB Prov: IRIS SOLIS MD 09/07/25 Additional Instructions: FOLLOW-UP WITH PRIMARY CARE PROVIDER IN 1 TO 2 DAYS. TAKE MEDICATIONS DIRECTED HERE IN THE EMERGENCY ROOM. OKAY TO CONTINUE HOME MEDICATIONS UNLESS OTHERWISE DISCUSSED DURING YOUR VISIT IN THE EMERGENCY ROOM TODAY. RETURN TO YOUR NEAREST EMERGENCY ROOM IF SYMPTOMS WORSEN OR IF THERE IS NO IMPROVEMENT. CALL 911 IF YOU NEED IMMEDIATE ASSISTANCE. TAKE TYLENOL [id number] NEEDED AND IF NO CONTRAINDICATIONS ARE PRESENT. INCREASE ORAL HYDRATION. A WOUND CULTURE OR URINE CULTURE WAS ORDERED HERE IN THE EMERGENCY ROOM DEPARTMENT PLEASE FOLLOW-UP WITH PRIMARY CARE PROVIDER AND ADVISE THEM TO GET REPORTS FROM OUR FACILITY. IF YOU HAD ANY MEGHANN WRAP/SPLINTS THAT WERE APPLIED HERE, PLEASE DO NOT REMOVE THEM UNTIL YOU SEE YOUR PRIMARY CARE OR SPECIALTY. Referrals: Referrals: PEE TAM (PCP) Time of Disposition: 12:49 IRIS SOLIS MD Sep 07, 2025 11:33
--- NOTE | 2025-09-07 12:43 | HMCIMG ---
EXAM: CT Abdomen and Pelvis with IV contrast CLINICAL HISTORY: abd pain NEED REPORT ELISABETH PER ER DOC TECHNIQUE: Axial computed tomography images of the abdomen and pelvis with intravenous contrast. CT scan performed according to ALARA. Automated exposure control used during exam. CONTRAST: with intravenous contrast. COMPARISON: None provided. FINDINGS: Lung bases are clear. There is no focal abnormality appreciated within the liver, gallbladder, either adrenal gland, either kidney, spleen, or pancreas. Mesenteric panniculitis within the mid abdomen. No fluid collection appreciated. Bowel loops are normal in caliber without evidence of obstruction, ileus, or obvious bowel wall thickening. There is colonic diverticulosis without evidence for diverticulitis. No CT evidence of acute appendicitis. Mild bladder wall thickening may reflect cystitis, clinical correlation is advised. The uterus is either atrophic or surgically absent, clinical correlation is advised. There is no ascites or lymphadenopathy. Opacified abdominal and pelvic vessels are patent. Atherosclerotic vascular calcifications are noted. There is no acute or suspicious osseous abnormality. IMPRESSION: 1. No acute intraabdominal or pelvic pathology. 2. Incidental mesenteric panniculitis within the mid abdomen. 3. Mild bladder wall thickening, may reflect cystitis. /[place]
[2025-09-07] MEDS ORDERED: CIPR500S4 PO (12:50)
[2025-09-07 13:28] VITALS: BP 126/67; PULSE 75; RESP 12; TEMP 98.6; O2SAT 98
== END 2025-09-07 13:52 | disposition home or self-care (01) ==
LOC: EDH 08:53
DX: H20.9 Unspecified iridocyclitis (principal); M79.3 Panniculitis, unspecified; E11.9 Type 2 diabetes mellitus without complications; E78.00 Pure hypercholesterolemia, unspecified; I10 Essential (primary) hypertension; Z79.84 Long term (current) use of oral hypoglycemic drugs; Z79.82 Long term (current) use of aspirin; Z79.899 Other long term (current) drug therapy
CPT/HCPCS: 99284; 74177; 82550; 84484; 80053; 85025; 81001; 36415; 93005; Q9967; 99285